=== PATIENT | female | born 1970 | race Hispanic/Latino ===

== ENCOUNTER 2019-12-20 13:46 | Emergency (ER) | payer OTHER ==
[2019-12-21 14:39] LABS: SARS-CoV-2 MS2 Positive; SARS-CoV-2 N Gene Negative; SARS-CoV-2 S Gene Negative; SARS-CoV-2 orf1ab Negative
== END 2019-12-20 14:22 | disposition home or self-care (01) ==
LOC: ERS 13:46
DX: Z20.828 Contact with and (suspected) exposure to other viral communicable diseases (principal); I10 Essential (primary) hypertension
CPT/HCPCS: 87635; 99283; U0003